=== PATIENT | male | born 1975 | race American Indian/Alaskan Native ===

== ENCOUNTER 2019-06-09 17:13 | Emergency (ER) | payer SELFPAY ==
--- NOTE | 2019-06-09 17:51 | Event Note ---
ED Screening Note Date of service: 06/09/19 Time: 17:48 ED Screening Note: Pt complains of dysuria x 1 week and being out of BP meds x 2 months. Denies penile discharge. State risk of STI This initial assessment/diagnostic orders/clinical plan/treatment(s) is/are subject to change based on patients health status, clinical progression and re- assessment by fellow clinical providers in the ED. Further treatment and workup at subsequent clinical providers discretion. Patient/guardian urged not to elope from the ED as their condition may be serious if not clinically assessed and managed. Initial orders include: hydralazine-BP212/136
[2019-06-09] MEDS ORDERED: CATAPRES PO STA (21:24)
[2019-06-09] MEDS ORDERED: ROCEPHIN IM STA (21:37)
[2019-06-09] MEDS ORDERED: XYLOCAINE 1% MPF 5 mL INFILTRATI ONE (21:37)
[2019-06-09] MEDS ORDERED: ZITHROMAX PO ONE (21:37)
--- NOTE | 2019-06-09 21:52 | Emergency Department Report ---
ED Male HPI - General Chief complaint: Abdominal Pain Stated complaint: BURNING SENSATION WHILE URINATING MED REFILL Time Seen by Provider: 06/09/19 21:23 Source: patient Mode of arrival: Ambulatory Limitations: No Limitations - History of Present Illness Initial comments: 44-year-old -[place] male with a past medical history of hypertension and other medications the last 2 months presents emergency department complaining of penile irritation and burning due to unprotected sex with a female which she believes has had an STD. No testicular pain, no fever, chills, sweats no hematuria. MD Complaint: dysuria -: Gradual Location: penis Severity: mild Quality: burning Consistency: constant Worsens with: urination dysuria - Related Data Sexually active: Yes Previous Rx's Medication Instructions Recorded Last Taken Type Acetaminophen [Acetaminophen TAB] 650 mg PO Q4H PRN #15 tablet 12/30/18 Unknown Rx Aspirin [Aspirin BABY CHEW TAB] 81 mg PO QDAY tab.chew 12/30/18 Unknown Rx AtorvaSTATin [Lipitor] 40 mg PO QHS #30 tablet 12/30/18 Unknown Rx Carvedilol [Coreg] 3.125 mg PO BID #60 tablet 06/09/19 Unknown Rx NIFEdipine XL [Procardia Xl] 90 mg PO QDAY #90 tablet 06/09/19 Unknown Rx hydrALAZINE [Apresoline TAB] 25 mg PO TID #90 tablet 06/09/19 Unknown Rx Allergies Allergy/AdvReac Type Severity Reaction Status Date / Time bee venom protein (honey bee) Allergy Unknown Verified 12/28/18 03:40 lisinopril Allergy Shortness Verified 12/28/18 06:46 of Breath pollen extracts Allergy Unknown Verified 12/28/18 03:40 ED Review of Systems ROS: Stated complaint: BURNING SENSATION WHILE URINATING MED REFILL Other details as noted in HPI Comment: All other systems reviewed and negative ED Past Medical Hx - Past Medical History Hx Hypertension: Yes Additional medical history: Coronary Angiogram 2017 - Social History Smoking Status: Never Smoker Substance Use Type: None - Medications Home Medications: Home Medications Medication Instructions Recorded Confirmed Last Taken Type Acetaminophen [Acetaminophen TAB] 650 mg PO Q4H PRN #15 tablet 12/30/18 Unknown Rx Aspirin [Aspirin BABY CHEW TAB] 81 mg PO QDAY tab.chew 12/30/18 Unknown Rx AtorvaSTATin [Lipitor] 40 mg PO QHS #30 tablet 12/30/18 Unknown Rx Carvedilol [Coreg] 3.125 mg PO BID #60 tablet 06/09/19 Unknown Rx NIFEdipine XL [Procardia Xl] 90 mg PO QDAY #90 tablet 06/09/19 Unknown Rx hydrALAZINE [Apresoline TAB] 25 mg PO TID #90 tablet 06/09/19 Unknown Rx ED Physical Exam - General Limitations: No Limitations General appearance: alert, in no apparent distress - Head Head exam: Present: atraumatic, normocephalic - Eye Eye exam: Present: normal appearance, PERRL, EOMI Pupils: Present: normal accommodation - ENT ENT exam: Present: normal exam, normal orophraynx, mucous membranes moist - Neck Neck exam: Present: normal inspection, full ROM - Respiratory Respiratory exam: Present: normal lung sounds bilaterally. Absent: respiratory distress, wheezes, rales, rhonchi, chest wall tenderness, accessory muscle use - Cardiovascular Cardiovascular Exam: Present: regular rate, normal rhythm. Absent: systolic murmur, diastolic murmur, rubs, gallop - GI/Abdominal GI/Abdominal exam: Present: soft, normal bowel sounds. Absent: distended, tenderness, hyperactive bowel sounds, hypoactive bowel sounds, organomegaly, mass - Rectal Rectal exam: Present: deferred - Extremities Exam Extremities exam: Present: normal inspection, normal capillary refill - Back Exam Back exam: Present: normal inspection, full ROM - Neurological Exam Neurological exam: Present: alert, oriented X3, CN II-XII intact - Psychiatric Psychiatric exam: Present: normal affect, normal mood. Absent: anxious, flat affect, suicidal ideation - Skin Skin exam: Present: warm, dry, intact, normal color. Absent: rash, cyanosis, diaphoretic, erythema ED Course Vital Signs 06/09/19 06/09/19 17:45 21:40 Temperature 98.5 F Pulse Rate 89 91 H Respiratory 18 Rate Blood Pressure 212/136 183/108 O2 Sat by Pulse 97 Oximetry Critical care attestation.: If time is entered above; I have spent that time in minutes in the direct care of this critically ill patient, excluding procedure time. ED Disposition Clinical Impression: Dysuria, HTN (hypertension) Disposition: - TO HOME OR SELFCARE Is pt being admited?: No Does the pt Need Aspirin: No Condition: Stable Instructions: Hypertension (ED), Dysuria (ED), Safe Sex (ED), Sexually Transmitted Diseases (ED) Prescriptions: hydrALAZINE [Apresoline TAB] 25 mg PO TID #90 tablet Carvedilol [Coreg] 3.125 mg PO BID #60 tablet NIFEdipine XL [Procardia Xl] 90 mg PO QDAY #90 tablet Referrals: [facility] [Provider Group] - 3-5 Days
[2019-06-09 23:51] VITALS: BP 183/98
== END 2019-06-09 23:51 | disposition home or self-care (01) ==
LOC: ED 17:13
DX: R30.0 Dysuria (principal); I10 Essential (primary) hypertension; Z88.6 Allergy status to analgesic agent; Z91.030 Bee allergy status
CPT/HCPCS: 96372; 99282; J0696